=== PATIENT | male | born 1975 | race Caucasian/White ===

== ENCOUNTER → 2022-01-11 | Day surgery (SDC) | payer OTHER ==
[~2022-01-11] VITALS: Ht 185.4 cm; Wt 71.2 kg
[~2022-01-11] MED LIST: CLINDAMYCIN 15150 MG PO; LEXAPRO20 M1 PO; METHYLPREDNISOLO4 M1 PO; PRINIVIL20 MG PO; SUBOXONE 8 MG-1 EACH PO
[2022-01-11 11:19] LABS: BASOPHIL 0.3 % (0-2); EOSINOPHIL 0 % (0-5); HCT 41.4 % (42.0-52.0); HGB 13.8 g/dl (13.2-18.0); LYMPHOCYTE 5.5 % (15-48); MCH 29.1 pg (25.0-31.0); MCHC 33.3 g/dL (32.0-36.0); MCV 87.2 fL (78.0-100.0); MPV 10.6 fL (6.0-9.5); NEUTROPHIL 88.5 % (41-80); NRBC 0; PLT 407 K/uL (150-400); RBC 4.75 M/uL (4.70-6.00); RDW 12.9 % (11.5-14.0); WBC 23.4 K/uL (4.0-10.5)
[2022-01-11 11:38] LABS: BUN/CREAT RATIO (CALC) 34.6 RATIO; CREATININE 0.81 mg/dL (0.67-1.17); POTASSIUM 4.2 mmol/L (3.5-5.1)
== END | disposition home or self-care (01) ==
LOC: FAS 09:43
PROVIDERS: Oral & Maxillofacial Surgery
DX: K02.9 Dental caries, unspecified (principal); K04.7 Periapical abscess without sinus; I10 Essential (primary) hypertension; F17.200 Nicotine dependence, unspecified, uncomplicated; K21.9 Gastro-esophageal reflux disease without esophagitis; F41.9 Anxiety disorder, unspecified; Z80.0 Family history of malignant neoplasm of digestive organs
CPT/HCPCS: D7140 ×3; D7210 ×8; 36415; 80048; 85025; J1100; J1885; J2250; J2405; J2704; J7120